=== PATIENT | female | born 1980 | race Caucasian/White ===

== ENCOUNTER → 2019-03-14 | Outpatient (CLI) | payer BC ==
--- NOTE | 2019-03-14 08:12 | US ---
EXAMINATION TYPE: US abdomen complete DATE OF EXAM: 03/14/2019 COMPARISON: CT from 2010. CLINICAL HISTORY: R10.9 abdominal pain, R10.2 pelvic pain. EXAM MEASUREMENTS: Liver Length: 13.5 cm Gallbladder Wall: 0.2 cm CBD: 0.3 cm Spleen: 10.6 cm Right Kidney: 10.2 x 3.9 x 6.1 cm Left Kidney: 11.4 x 5.6 x 5.8 cm Pancreas: visualized portions wnl Liver: echogenic lesion left lobe measures 1.2 x 1.5 x 1.6 cm. Gallbladder: No stones seen Evidence for sonographic Swanson's sign: No CBD: wnl Spleen: wnl Right Kidney: No hydronephrosis or masses seen Left Kidney: No hydronephrosis or masses seen Upper IVC: wnl Abd Aorta: wnl The visualized liver shows nonspecific 1.5 cm hyperechoic lesion left hepatic lobe. The intrahepatic portion of the IVC and proximal abdominal aorta are within normal limits. There is no evidence of c holelithiasis. Common bile duct is unremarkable. The visualized portions of the pancreas are homoge nous. The spleen is unremarkable. Kidneys are symmetric and free of hydronephrosis. No renal lesio ns are seen. IMPRESSION: No acute findings are evident. Nonspecific 1.5 cm hyperechoic lesion favors small benign hemangioma. There is a roughly 1 cm left hepatic lobe lesion on CT 2010 making almost certain this is benign without significant interval growth.
--- NOTE | 2019-03-14 08:15 | US ---
EXAMINATION TYPE: US pelvic complete DATE OF EXAM: 03/14/2019 COMPARISON: NONE CLINICAL HISTORY: R10.2, PELVIC PAIN. TECHNIQUE: Transabdominal (TA). Date of LMP: 03/13/2019 EXAM MEASUREMENTS: Uterus: 9.9 x 4.1 x 6.2 cm Endometrial Stripe: 0.8 cm Right Ovary: 3.0 x 2.8 x 3.3 cm Left Ovary: 3.4 x 2.6 x 2.6 cm 1. Uterus: Retroverted wnl 2. Endometrium: wnl 3. Right Ovary: wnl 4. Left Ovary: wnl Spectral, color and waveform doppler imaging shows good arterial and venous flow within the ovaries . 5. Bilateral Adnexa: wnl 6. Posterior cul-de-sac: no free fluid Heterogeneous uterus without definitive focal fibroid. No free fluid. IMPRESSION: No findings seen to account for patient's symptoms of pain on transabdominal pelvic ultra sound evaluation.
== END | disposition home or self-care (01) ==
LOC: RADUSWWP 07:25
PROVIDERS: ATTEND Family Medicine
DX: K76.9 Liver disease, unspecified (principal); D18.03 Hemangioma of intra-abdominal structures; R10.2 Pelvic and perineal pain
CPT/HCPCS: 76700; 76856